=== PATIENT | female | born 1980 | race Caucasian/White ===

== ENCOUNTER → 2017-04-14 | Outpatient (CLI) | payer BC, OTHER ==
[~2017-04-14] MED LIST: DCS100C PO; FLX20C; HYDR-3454 PO; ONDN4T PO; PANT40TA2 PO; TRM50T
--- NOTE | 2017-04-14 11:28 | Diagnostic Imaging Report ---
EXAMINATION: Bilateral diagnostic mammogram with tomography. CAD is utilized. The current study was also evaluated with a Computer Aided Detection (CAD) system. INDICATION: Medial right breast pain. COMPARISON: 03/11/14. FINDINGS: The breasts are composed of heterogeneously dense parenchyma in the central aspect of each breast. Benign-appearing calcification seen. Overall the breast density appears to be slightly decreased compared to 2014 exam. No significant change is seen otherwise. IMPRESSION: No mammographic evidence of malignancy. Ultrasound evaluation pending. BI-RADS 0. ACR BI-RADS Category 0: Incomplete. (Needs additional imaging evaluation). Result letter will be mailed to the patient. Note: At least 10% of breast cancer is not imaged by mammography. Dictated by: Dictated on workstation # [id number]
--- NOTE | 2017-04-14 12:14 | Diagnostic Imaging Report ---
Right breast ultrasound. INDICATION: Right breast pain medial aspect. FINDINGS: The area of pain and surrounding region in the right breast is scanned with no underlying abnormality seen. IMPRESSION: Negative study. Clinical followup is recommended. ACR BI-RADS Category 1: Negative. Dictated by: Dictated on workstation # [id number]
== END ==
LOC: RAD 10:47
PROVIDERS: ATTEND Nurse Practitioner Family
DX: N64.4 Mastodynia (principal)
CPT/HCPCS: 77066

== ENCOUNTER → 2018-04-17 | Outpatient (CLI) | payer OTHER ==
[2018-04-17 12:18] LABS: BASOPHILS % (AUTO) 0 % (0-10); EOSINOPHILS # (AUTO) 0.2 10^3/uL (0.0-0.3); EOSINOPHILS % (AUTO) 3 % (0-10); HEMATOCRIT 41 % (35-52); HEMOGLOBIN 14.4 G/DL (11.5-16.0); LYMPHOCYTES # (AUTO) 2.6 X 10^3 (1.0-4.0); LYMPHOCYTES % (AUTO) 32 % (12-44); MEAN CORPUSCULAR HEMOGLOBIN 31 PG (25-34); MEAN CORPUSCULAR HGB CONC 35 G/DL (32-36); MEAN CORPUSCULAR VOLUME 90 FL (80-99); MEAN PLATELET VOLUME 9.7 FL (7.4-10.4); MONOCYTES # (AUTO) 0.5 X 10^3 (0.0-1.0); MONOCYTES % (AUTO) 6 % (0-12); NEUTROPHILS # (AUTO) 4.7 X 10^3 (1.8-7.8); NEUTROPHILS % (AUTO) 58 % (42-75); PLATELET COUNT 268 10^3/uL (130-400); RED BLOOD COUNT 4.58 10^6/uL (4.35-5.85); RED CELL DISTRIBUTION WIDTH 12.6 % (10.0-14.5); WHITE BLOOD COUNT 8.1 10^3/uL (4.3-11.0)
[2018-04-17 12:38] LABS: ALANINE AMINOTRANSFERASE 28 U/L (0-55); ALBUMIN 4.5 GM/DL (3.2-4.5); ALKALINE PHOSPHATASE 52 U/L (40-136); BILIRUBIN,TOTAL 0.6 MG/DL (0.1-1.0); BUN/CREATININE RATIO 11; CALCIUM 9.6 MG/DL (8.5-10.1); CARBON DIOXIDE 25 MMOL/L (21-32); CHLORIDE 105 MMOL/L (98-107); CHOLESTEROL 200 MG/DL (< 200); CREATININE SERUM 0.95 MG/DL (0.60-1.30); GFR ESTIMATED > 60; GLUCOSE 92 MG/DL (70-105); HDL CHOLESTEROL 43 MG/DL (40-60); SODIUM 138 MMOL/L (135-145); TOTAL PROTEIN 7.4 GM/DL (6.4-8.2); TRIGLYCERIDES 152 MG/DL (<150); VLDL CHOLESTEROL 30 MG/DL (5-40)
== END ==
LOC: LAB 11:56
PROVIDERS: ATTEND Nurse Practitioner Family
DX: R53.83 Other fatigue (principal); R23.2 Flushing; N64.4 Mastodynia
CPT/HCPCS: 36415; 80053; 80061; 82672; 84144; 84443; 85025

== ENCOUNTER 2019-01-07 14:08 | Observation (INO) | payer OTHER ==
[~2019-01-07] VITALS: Ht 172.7 cm; Wt 97.7 kg
--- NOTE | 2019-01-07 14:10 | NUR ---
TRINITY GILBERT admitted to room 411-1, with an admitting diagnosis of BRONCHITIS, on 01/07/[address] ROS NEWTON via AMBULATORY, accompanied by SELF. TRINITY GILBERT introduced to surroundings, call light, bed controls, phone, TV, temperature control, lights, meal times, smoking policy, visitor policy, side rail policy, bathrooms and showers. Patient Rights given to patient in the handbook. TRINITY GILBERT verbalizes understanding that [facility] is not responsible for the loss or damage to any personal effects or valuables that are kept in the patients posession during their hospitalization. The following Patient Care Plans were discussed with the PATIENT: Discharge Planning, KNOWLEDGE, AND INEFFECTIVE BREATHING. TRINITY GILBERT verbalizes understanding of Interdisciplinary Patient Education.
--- OUTSIDE RECORDS SUMMARY | 2019-01-07 14:18 | XMS REPORT | Continuity of Care Document ---
Author Organization Unknown Address Unknown Allergies Active Description Code Type Severity Reaction Onset Reported/Identified Relationship to Patient Clinical Status Yes amoxicillin [id number] Drug Allergy Unknown N/A 05/08/2008 Yes butorphanol [id number] Drug Allergy Unknown N/A 05/08/2008 Yes clindamycin [id number] Drug Allergy Unknown N/A 05/08/2008 Yes codeine [id number] Drug Allergy Unknown N/A 05/08/2008 Yes meperidine [id number] Drug Allergy Unknown N/A 05/08/2008 Yes morphine [id number] Drug Allergy Unknown PT TAKES NUBAIN 05/08/2008 Yes oxycodone [id number] Drug Allergy Unknown N/A 05/08/2008 Yes Penicillins [id number] Drug Allergy Unknown N/A 05/08/2008 Yes potassium clavulanate [id number] Drug Allergy Unknown N/A 05/08/2008 Yes propoxyphene [id number] Drug Allergy Unknown N/A 05/08/2008 Yes acetaminophen [id number] Drug Allergy Unknown PT TAKES TYLENO 05/09/2008 Yes moxifloxacin [id number] Drug Allergy Unknown ANAPHYLAXIS 09/09/2014 Medications There is no data. Problems Date Dx Coded Attending Type Code Diagnosis Diagnosed By 09/05/2014 IRINA FRANCIS MD Ot 611.72 09/05/2014 IRINA FRANCIS MD Ot V72.62 09/05/2014 YANI KHANNA APRN Ot V76.12 09/05/2014 IMTIAZ KHANNA Ot 574.20 09/11/2014 Ot 574.20 CHOLELITHIASIS NOS 09/19/2014 IMTIAZ KHANNA Ot 574.20 09/19/2014 HIREN CURTIS DO Ot 574.20 09/19/2014 HIREN CURTIS DO Ot V72.63 09/19/2014 HIREN CURTIS DO Ot V74.8 10/17/2014 Ot 424.0 10/17/2014 Ot 780.79 10/17/2014 Ot 786.50 12/09/2014 HIREN CURTIS DO D Ot 574.20 12/09/2014 HIREN CURTIS DO D Ot V72.63 12/09/2014 HIREN CURTIS DO D Ot V74.8 11/17/2015 CURTIS HIREN CORTES Ot 574.20 CHOLELITHIASIS NOS 11/17/2015 CURTIS HIREN CORTES Ot V72.63 PRE-PROCEDURAL LABORATORY EXAMINATION 11/17/2015 CURTIS HIREN CORTES Ot V74.8 SCREEN-BACTERIAL DIS NEC 12/14/2016 CURTIS HIREN CORTES Ot 574.20 CHOLELITHIASIS NOS 12/14/2016 HOBOKEN HIREN CORTES Ot V72.63 PRE-PROCEDURAL LABORATORY EXAMINATION 12/14/2016 HOBOKEN HIREN CORTES Ot V74.8 SCREEN-BACTERIAL DIS NEC 04/14/2017 IRINA FRANCIS MD Ot 611.72 LUMP OR MASS IN BREAST 04/14/2017 IRINA FRANCIS MD Ot V72.62 LAB EXAM ORDERED PART OF A ROUTINE GE 04/14/2017 YANI KHANNA RETINAL ANGIOGRAPHER Ot V76.12 OTH SCREEN MAMMO-MALIGN NEOPLASM OF CARLOS 04/14/2017 IMTIAZ KHANNA Ot 574.20 CHOLELITHIASIS NOS 04/14/2017 IRINA FRANCIS MD Ot 611.72 LUMP OR MASS IN BREAST 04/14/2017 IRINA FRANCIS MD Ot V72.62 LAB EXAM ORDERED PART OF A ROUTINE GE 04/14/2017 YANI KHANNA RETINAL ANGIOGRAPHER Ot V76.12 OTH SCREEN MAMMO-MALIGN NEOPLASM OF CARLOS 04/14/2017 IMTIAZ KHANNA ENROBER TENDER Ot 574.20 CHOLELITHIASIS NOS 04/17/2017 FAVIOLA DHILLON RETINAL ANGIOGRAPHER Ot N64.4 MASTODYNIA 05/09/2017 FAVIOLA DHILLON RETINAL ANGIOGRAPHER Ot N64.4 MASTODYNIA 04/19/2018 FAVIOLA DHILLON RETINAL ANGIOGRAPHER Ot N64.4 MASTODYNIA 04/19/2018 FAVIOLA DHILLON RETINAL ANGIOGRAPHER Ot R23.2 FLUSHING 04/19/2018 ALEJO, FAVIOLA M RETINAL ANGIOGRAPHER Ot R53.83 OTHER FATIGUE 04/23/2018 FAVIOLA DHILLON RETINAL ANGIOGRAPHER Ot N64.4 MASTODYNIA 04/23/2018 FAVIOLA DHILLON RETINAL ANGIOGRAPHER Ot R23.2 FLUSHING 04/23/2018 FAVIOLA DHILLON RETINAL ANGIOGRAPHER Ot R53.83 OTHER FATIGUE 04/30/2018 FAVIOLA DHILLON RETINAL ANGIOGRAPHER Ot N64.4 MASTODYNIA 04/30/2018 FAVIOLA DHILLON RETINAL ANGIOGRAPHER Ot R23.2 FLUSHING 04/30/2018 FAVIOLA DHILLON RETINAL ANGIOGRAPHER Ot R53.83 OTHER FATIGUE 05/01/2018 FAVIOLA DHILLON RETINAL ANGIOGRAPHER Ot N64.4 MASTODYNIA 05/01/2018 FAVIOLA DHILLON RETINAL ANGIOGRAPHER Ot R23.2 FLUSHING 05/01/2018 FAVIOLA DHILLON RETINAL ANGIOGRAPHER Ot R53.83 OTHER FATIGUE 05/01/2018 FAVIOLA DHILLON RETINAL ANGIOGRAPHER Ot N64.4 MASTODYNIA 05/01/2018 FAVIOLA DHILLON RETINAL ANGIOGRAPHER Ot R23.2 FLUSHING 05/01/2018 FAVIOLA DHILLON RETINAL ANGIOGRAPHER Ot R53.83 OTHER FATIGUE 05/22/2018 FAVIOLA DHILLON RETINAL ANGIOGRAPHER Ot N64.4 MASTODYNIA 05/22/2018 FAVIOLA DHILLON RETINAL ANGIOGRAPHER Ot R23.2 FLUSHING 05/22/2018 FAVIOLA DHILLON RETINAL ANGIOGRAPHER Ot R53.83 OTHER FATIGUE Procedures There is no data. Results Test Result Range Complete blood count (CBC) with automated white blood cell (WBC) differential - 04/17/18 12:13 Blood leukocytes automated count (number/volume) 8.1 10*3/uL 4.3-11.0 Blood erythrocytes automated count (number/volume) 4.58 10*6/uL 4.35-5.85 Venous blood hemoglobin measurement (mass/volume) 14.4 g/dL 11.5-16.0 Blood hematocrit (volume fraction) 41 % 35-52 Automated erythrocyte mean corpuscular volume 90 [foz_us] 80-99 Automated erythrocyte mean corpuscular hemoglobin (mass per erythrocyte) 31 pg 25-34 Automated erythrocyte mean corpuscular hemoglobin concentration measurement (mass/volume) 35 g/dL 32-36 Automated erythrocyte distribution width ratio 12.6 % 10.0- 14.5 Automated blood platelet count (count/volume) 268 10*3/uL 130-400 Automated blood platelet mean volume measurement 9.7 [foz_us] 7.4-10.4 Automated blood neutrophils/100 leukocytes 58 % 42-75 Automated blood lymphocytes/100 leukocytes 32 % 12-44 Blood monocytes/100 leukocytes 6 % 0-12 Automated blood eosinophils/100 leukocytes 3 % 0-10 Automated blood basophils/100 leukocytes 0 % 0-10 Blood neutrophils automated count (number/volume) 4.7 10*3 1.8-7.8 Blood lymphocytes automated count (number/volume) 2.6 10*3 1.0-4.0 Blood monocytes automated count (number/volume) 0.5 10*3 0.0- 1.0 Automated eosinophil count 0.2 10*3/uL 0.0-0.3 Automated blood basophil count (count/volume) 0.0 10*3/uL 0.0-0.1 Comprehensive metabolic panel - 04/17/18 12:13 Serum or plasma sodium measurement (moles/volume) 138 mmol/L 135-145 Serum or plasma potassium measurement (moles/volume) 4.0 mmol/L 3.6-5.0 Serum or plasma chloride measurement (moles/volume) 105 mmol/L 98-107 Carbon dioxide 25 mmol/L 21-32 Serum or plasma anion gap determination (moles/volume) 8 mmol/L 5-14 Serum or plasma urea nitrogen measurement (mass/volume) 10 mg/dL 7-18 Serum or plasma creatinine measurement (mass/volume) 0.95 mg/dL 0.60-1.30 Serum or plasma urea nitrogen/creatinine mass ratio 11 NRG Serum or plasma creatinine measurement with calculation of estimated glomerular filtration rate > NRG Serum or plasma glucose measurement (mass/volume) 92 mg/dL 70-105 Serum or plasma calcium measurement (mass/volume) 9.6 mg/dL 8.5-10.1 Serum or plasma total bilirubin measurement (mass/volume) 0.6 mg/dL 0.1-1.0 Serum or plasma alkaline phosphatase measurement (enzymatic activity/volume) 52 U/L 40-136 Serum or plasma aspartate aminotransferase measurement (enzymatic activity/volume) 21 U/L 5-34 Serum or plasma alanine aminotransferase measurement (enzymatic activity/volume) 28 U/L 0-55 Serum or plasma protein measurement (mass/volume) 7.4 g/dL 6.4-8.2 Serum or plasma albumin measurement (mass/volume) 4.5 g/dL 3.2-4.5 CALCIUM CORRECTED 9.2 mg/dL 8.5-10.1 Lipid 1996 panel - 04/17/18 12:13 Serum or plasma triglyceride measurement (mass/volume) 152 mg/dL <150 Serum or plasma cholesterol measurement (mass/volume) 200 mg/dL < 200 Serum or plasma cholesterol in HDL measurement (mass/volume) 43 mg/dL 40-60 Cholesterol in LDL [mass/volume] in serum or plasma by direct assay 145 mg/dL 1-129 Serum or plasma cholesterol in VLDL measurement (mass/volume) 30 mg/dL 5-40 THYROID STIMULATING HORMONE - 04/17/18 12:13 THYROID STIMULATING HORMONE 1.48 u[iU]/mL 0.35-4.94 Serum or plasma progesterone measurement (mass/volume) - 04/17/18 12:13 Serum or plasma progesterone measurement (mass/volume) 2.58 % NRG Serum or plasma estradiol (E2) measurement (mass/volume) - 04/17/18 12:13 Serum or plasma estrogen measurement (mass/volume) 352.0 pg/mL NRG Encounters ACCT No. Visit Date/Time Discharge Status Pt. Type Provider Facility Loc./Unit Complaint [id number] 04/17/2018 11:56:00 04/17/2018 23:59:59 CLS Outpatient FAVIOLA DHILLON APRN [facility] LAB FATIGUE,CARDIOVASCULAR SCREENING,BREAST PAIN [id number] 04/14/2017 10:47:00 04/14/2017 23:59:59 CLS Outpatient FAVIOLA DHILLON APRN [facility] RAD RT BREAST PAIN [id number] 09/09/2014 06:30:00 09/09/2014 23:59:59 CLS Outpatient HIREN CURTIS DO [facility] PREOP GALLSTONES [id number] 09/04/2014 11:56:00 09/04/2014 23:59:59 CLS Outpatient IMTIAZ KHANNA [facility] RAD ABD PAIN, DIARRHEA,NAUSEA [id number] 04/15/2014 06:33:00 04/15/2014 23:59:59 CLS Outpatient IRINA FRANCIS MD [facility] LAB ROUTINE EXAM [id number] 03/11/2014 10:14:00 03/11/2014 23:59:59 CLS Outpatient YANI KHANNA APRN [facility] RAD SCREENING [id number] 09/11/2014 08:55:00 Document Registration [id number] 10/21/2009 13:24:00 Document Registration
[2019-01-07] MEDS ORDERED: NS IV 1000 ML 1,000 ML IV SCH (14:20)
[2019-01-07] MEDS ORDERED: methylPREDNISolone 125 MG (Solu-MEDROL) VIAL IVP NR (14:30)
[2019-01-07 14:36] VITALS: BP 145/75
[2019-01-07 14:45] LABS: BASOPHILS % (AUTO) 0 % (0-10); EOSINOPHILS # (AUTO) 0.2 10^3/uL (0.0-0.3); EOSINOPHILS % (AUTO) 2 % (0-10); HEMATOCRIT 43 % (35-52); HEMOGLOBIN 14.5 G/DL (11.5-16.0); LYMPHOCYTES # (AUTO) 2.7 X 10^3 (1.0-4.0); LYMPHOCYTES % (AUTO) 32 % (12-44); MEAN CORPUSCULAR HEMOGLOBIN 31 PG (25-34); MEAN CORPUSCULAR HGB CONC 34 G/DL (32-36); MEAN CORPUSCULAR VOLUME 90 FL (80-99); MEAN PLATELET VOLUME 9.6 FL (7.4-10.4); MONOCYTES # (AUTO) 0.6 X 10^3 (0.0-1.0); MONOCYTES % (AUTO) 7 % (0-12); NEUTROPHILS % (AUTO) 59 % (42-75); PLATELET COUNT 291 10^3/uL (130-400); RED CELL DISTRIBUTION WIDTH 12.8 % (10.0-14.5); WHITE BLOOD COUNT 8.5 10^3/uL (4.3-11.0)
[2019-01-07] MEDS ORDERED: AZITHROMYCIN INJECTION 500 MG in NS (IVPB) 250 ML IV NR (14:45)
[2019-01-07] MEDS ORDERED: PROMETHAZINE 6.25 MG/5 ML SYRUP (PHENERGAN) 5 ML UDC PO NR (14:45)
--- NOTE | 2019-01-07 14:45 | NUR ---
Pastoral care visit.
[2019-01-07 15:09] LABS: ALANINE AMINOTRANSFERASE 62 U/L (0-55); ALBUMIN 4.3 GM/DL (3.2-4.5); ALKALINE PHOSPHATASE 53 U/L (40-136); BILIRUBIN,TOTAL 0.4 MG/DL (0.1-1.0); BUN/CREATININE RATIO 9; CALCIUM 9.5 MG/DL (8.5-10.1); CARBON DIOXIDE 26 MMOL/L (21-32); CHLORIDE 103 MMOL/L (98-107); GFR ESTIMATED > 60; GLUCOSE 91 MG/DL (70-105); POTASSIUM 3.5 MMOL/L (3.6-5.0); SODIUM 140 MMOL/L (135-145); TOTAL PROTEIN 7.1 GM/DL (6.4-8.2)
[2019-01-07] MEDS: cefTRIAXone FOR IV USE 1,000 MG in WATER (STERILE) FOR INJECTION 10 ML IV SCH (15:21)
[2019-01-07 15:49] VITALS: BP 135/84
[2019-01-07 15:51] VITALS: BP 135/84
[2019-01-07 16:06] VITALS: BP 135/84
[2019-01-07] MEDS: RT-ALBUTEROL SULF 2.5 MG/3 ML PRE-MIX VIAL INH SCH ×3 (16:06→22:49)
--- NOTE | 2019-01-07 16:15 | Diagnostic Imaging Report ---
INDICATION: Bronchitis and fever. TIME OF EXAM: 2:44 PM. COMPARISON: No prior studies are available for comparison. FINDINGS: The heart size is normal. The pulmonary vascularity is unremarkable. The lungs are clear. No infiltrate, effusion, or pneumothorax is detected. IMPRESSION: No acute cardiopulmonary process is detected. Dictated by: Dictated on workstation # [id number]
--- NOTE | 2019-01-07 16:58 | History & Physicial ---
History of Present Illness History of Present Illness Reason for visit/HPI PT PRESENTED TO THE OFFICE TODAY WITH COMPLAINT OF A COUGH WHICH HAS BEEN ONGOING FOR AT LEAST 10 DAYS. SHE REPORTS THAT SHE THOUGHT SHE WAS IMPROVING SLIGHTLY THEN SHE STARTED TO HAVE WORSENING COUGH, AND A RETURN OF HER FEVER. SHE STATES THAT SHE HAS BEEN UNABLE TO CALM DOWN HER COUGH AND HAS BEEN ON CEFDINIR AND AZITHROMYCIN (STARTED ON MONDAY EVENING) AND SHE HAS BEEN THROUGH A ROUND OF TESSALON PERLES WELL SEVERAL BOTTLES OF ROBITUSSIN. SHE STATES THAT SHE JUST FEELS MISERABLE. Date of Admission Jan 07, 2019 at 14:08 Date Seen by a Provider: Jan 07, 2019 Time Seen by a Provider: 13:30 Attending Physician Irina Russell MD Admitting Physician Irina Russell MD Consult Allergies and Home Medications Allergies Coded Allergies: Penicillins (Verified Allergy, Unknown, 05/08/08) acetaminophen (Verified Allergy, Unknown, PT TAKES TYLENOL AT HOME, 05/09/08) amoxicillin (Verified Allergy, Unknown, 05/08/08) butorphanol (Verified Allergy, Unknown, 05/08/08) clindamycin (Verified Allergy, Unknown, 05/08/08) codeine (Verified Allergy, Unknown, 05/08/08) meperidine (Verified Allergy, Unknown, 05/08/08) morphine (Verified Allergy, Unknown, PT TAKES NUBAIN AT HOME, 05/08/08) moxifloxacin (Unverified Allergy, Unknown, ANAPHYLAXIS, 09/09/14) oxycodone (Verified Allergy, Unknown, 05/08/08) potassium clavulanate (Verified Allergy, Unknown, 05/08/08) propoxyphene (Verified Allergy, Unknown, 05/08/08) Home Medications Docusate Sodium 100 Mg Cap, 100 MG PO BID Prescribed by: HIREN CURTIS on 09/11/14 1323 Hydrocodone Bit/Acetaminophen 1 Each Tablet, 1 EACH PO Q4H PRN for PAIN Prescribed by: HIREN CURTIS on 09/11/14 1323 Ondansetron Hcl 4 Mg Tab, 4 MG PO Q6H PRN for NAUSEA/VOMITING, (Reported) PRN N/V Pantoprazole Sod 40 Mg Tab, 40 MG PO DAILY, (Reported) Patient Home Medication List Home Medication List Reviewed: Yes Past Tsyqqsg-Mcrcxa-Skryji Hx Patient Social History Marrital Status: Number of Children: 1 Number of living children: 1 Living Status: LIVES WITH SPOUSE AND SON IN [place] 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[employer]) Alcohol Use: Occasionally Uses Alcohol Beverage of Choice: Beer Recreational Drug Use: No Smoking Status: Never a Smoker 2nd Hand Smoke Exposure: No Physical Abuse Screen: Yes Sexual Abuse: No Recent Foreign Travel: No Contact w/other who traveled: No Recent Hopitalizations: No (2003 for of son) Recent Infectious Disease Expo: No Immunizations Up To Date Date of Influenza Vaccine: Apr 23, 2014 Seasonal Allergies Seasonal Allergies: Yes Surgeries Yes (knee surgery x3, tonsilectomy, oral surgery to pull 12 teeth as a child) Respiratory Yes Currently Using CPAP: No Currently Using BIPAP: No Cardiovascular Yes Neurological No Reproductive System Hx Reproductive Disorders: No Sexually Transmitted Disease: No Genitourinary No Gastrointestinal No Gastroesophageal Reflux, Gall Bladder Disease Musculoskeletal No Endocrine History of Endocrine Disorders: No Are Your Blood Sugars Over 250: No HEENT History of HEENT Disorders: No Loss of Vision: Denies Hearing Impairment: Denies Cancer No Psychosocial History of Psychiatric Problem: Yes Behavioral Health Disorders: Depression Integumentary History of Skin or Integumenta: No Blood Transfusions History of Blood Disorders: No Adverse Reaction to a Blood Tr: No Reviewed Nursing Assessment Reviewed/Agree w Nursing PMH: Yes Family Medical History Significant Family History: Heart Disease, Cancer, Hypertension Review of Systems Constitutional: No chills, No diaphoresis; fever, malaise, weakness EENTM: No ear pain, No hoarseness, No throat pain Respiratory: cough, dyspnea on exertion, short of breath Cardiovascular: No chest pain, No palpitations Gastrointestinal: No abdominal pain, No constipation, No diarrhea, No loss of appetite Genitourinary: no symptoms reported Musculoskeletal: no symptoms reported; No back pain Skin: no symptoms reported Psychiatric/Neurological: No Symptoms Reported All Other Systems Reviewed Negative Unless Noted: Yes Physical Exam Vital Signs Vital Signs - First Documented 01/07/19 14:36 Temp 99.5 Pulse 87 Resp 20 B/P (MAP) 145/75 (98) Pulse Ox 96 O2 Delivery Room Air Capillary Refill : Height, Weight, BMI Height: 5'8.00" Weight: 215lbs. 8.0oz. 97.000049rc; 32.7 BMI Method: General Appearance: WD/WN, Mild Distress (DUE TO COUGH) HEENT: PERRL/EOMI, TMs Normal, Pharyngeal Erythema Neck: Full Range of Motion, Non Tender, Supple Respiratory: Chest Non Tender, No Accessory Muscle Use, Decreased Breath Sounds; No Rhonci, No Stridor; Wheezing Cardiovascular: Regular Rate, Rhythm, No Edema, Normal Peripheral Pulses Gastrointestinal: Normal Bowel Sounds, Non Tender, Soft Rectal: Deferred Extremity: Normal Capillary Refill, Normal Inspection, Non Tender, No Calf Tenderness, No Pedal Edema Neurologic/Psychiatric: Alert, Oriented x3, No Motor/Sensory Deficits, Normal Mood/Affect, it engineer II-XII Norm as Tested Skin: Normal Color, Warm/Dry Lymphatic: Other (ANTERIOR CERVICAL LYMPHADENOPATHY) Assessment/Plan Assessment and Plan BRONCHITIS FEVER COUGH SHORTNESS OF BREATH BRONCHITIS WITH FEVER AND COUGH AND SHORTNESS OF BREATH - CHEST XRAY - NEGATIVE, LABS SHOW NORMAL WHITE COUNT WITH ELEVATED LIVER ENZYMES - MAY BE MEDICATION RELATED, WILL ORDER A REPEAT OF HER LABS IN THE MORNING. START ON SOLUMEDROL, ROCEPHIN AND AZITHROMYCIN. BREATHING TREATMENTS SCHEDULED TESSALON PERLES AND PHENERGAN FOR COUGH SUPPRESSION. Admission Diagnosis BRONCHITIS FEVER COUGH SHORTNESS OF BREATH Admission Status: Observation Clinical Quality Measures DVT/VTE Risk/Contraindication: RFS Level Per Nursing on Admit: 0=No Risk/No VTE PPX IRINA RUSSELL MD Jan 07, 2019 16:57
[2019-01-07] MEDS: methylPREDNISolone 40 MG/ML (Solu-MEDROL) VIAL IV SCH (18:39)
[2019-01-07] MEDS: PROMETHAZINE 6.25 MG/5 ML SYRUP (PHENERGAN) 5 ML UDC PO PRN ×2 (19:26→23:52)
[2019-01-07 19:41] VITALS: BP 136/88
--- NOTE | 2019-01-07 21:07 | NUR ---
THIS RN CALLED DR. FRANCIS IN REGARDS TO THE PT REQUESTING THE IV FLUIDS BE STOPPED AND THE IV BE SALINE LOCKED DUE TO FREQUENT URINATION AND SWELLING OF THE LEFT ARM. ORDERS RECEIVED TO STOP NS @125 ML/HR AND SALINE LOCK PATIENT. ORDERS READ BACK AND VERIFIED.
[2019-01-07] MEDS: BENZONATATE 100 MG (TESSALON) CAPSULE PO SCH (21:11)
[2019-01-08] MEDS: methylPREDNISolone 40 MG/ML (Solu-MEDROL) VIAL IV SCH ×4 (00:02→18:29)
[2019-01-08 00:09] VITALS: BP 148/79
[2019-01-08] MEDS: RT-ALBUTEROL SULF 2.5 MG/3 ML PRE-MIX VIAL INH SCH ×4 (04:04→14:50)
[2019-01-08 04:44] VITALS: BP 121/73
[2019-01-08 06:05] LABS: HEMOGLOBIN 13.3 G/DL (11.5-16.0); MEAN PLATELET VOLUME 9.9 FL (7.4-10.4); RED CELL DISTRIBUTION WIDTH 13.1 % (10.0-14.5); WHITE BLOOD COUNT 15.5 10^3/uL (4.3-11.0)
[2019-01-08] MEDS: PROMETHAZINE 6.25 MG/5 ML SYRUP (PHENERGAN) 5 ML UDC PO PRN ×3 (06:06→15:04)
[2019-01-08 06:18] LABS: ALANINE AMINOTRANSFERASE 58 U/L (0-55); ALBUMIN 4.1 GM/DL (3.2-4.5); ALKALINE PHOSPHATASE 53 U/L (40-136); BILIRUBIN,TOTAL 0.3 MG/DL (0.1-1.0); BUN/CREATININE RATIO 18; CALCIUM 9.5 MG/DL (8.5-10.1); CARBON DIOXIDE 19 MMOL/L (21-32); CHLORIDE 105 MMOL/L (98-107); CREATININE SERUM 0.84 MG/DL (0.60-1.30); GFR ESTIMATED > 60; GLUCOSE 208 MG/DL (70-105); POTASSIUM 4.4 MMOL/L (3.6-5.0); SODIUM 136 MMOL/L (135-145)
[2019-01-08 08:00] VITALS: BP 136/74
[2019-01-08] MEDS ORDERED: AZIT250T12 PO (08:29)
[2019-01-08] MEDS ORDERED: AZITHROMYCIN INJECTION 250 MG in NS (IVPB) 250 ML IV SCH (09:00)
[2019-01-08] MEDS: BENZONATATE 100 MG (TESSALON) CAPSULE PO SCH ×2 (09:14→13:49)
[2019-01-08] MEDS ORDERED: CETI10TA20 PO (10:51)
[2019-01-08] MEDS ORDERED: CEFD300C3 PO (10:51)
[2019-01-08] MEDS ORDERED: MELA3TAB PO (10:51)
[2019-01-08] MEDS ORDERED: ALPR0.254 PO (10:51)
--- NOTE | 2019-01-08 10:52 | NUR ---
SPOKE WITH THE PATIENT ABOUT HER MEDICATIONS. SHE LISTED HER MEDS TO ME AND I COMPARED WITH THE EXT MED HX. SHE STATES SHE FINISHED THE PREDNISONE AND IS OUT OF THE BENZONATATE SHE WAS PRESCRIBED. SHE IS STILL FINISHING UP HER ZPAK AND CEFDINIR SCRIPTS. SHE TAKES MELATONIN 3MG AND ZYRTEC 10MG HS OTC. SHE STATES SHE HAS THE ALPRAZOLAM BUT DOES NOT TAKE IT OFTEN, SHE WAS PRESCRIBED THIS WHEN SHE STOPPED HER FLUOXETINE BUT HAS NOT HAD TO TAKE THE XANAX RECENTLY.
[2019-01-08 12:00] VITALS: BP 130/84
[2019-01-08] MEDS: cefTRIAXone FOR IV USE 1,000 MG in WATER (STERILE) FOR INJECTION 10 ML IV SCH (14:54)
[2019-01-08 16:34] VITALS: BP 175/91
--- NOTE | 2019-01-08 16:37 | NUR ---
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 Her father, with whom she shared a strong and loving relationship, a year ago following cancer diagnosis. This unified communications architect officiated her father's . Offered active listening and compassionate presence. She is [employer] and holds strong personal values of loyalty, kindness, and honesty.
--- NOTE | 2019-01-08 18:30 | NUR ---
DR FRANCIS HERE, ORDERS GIVEN TO DISCHARGE.
--- NOTE | 2019-01-08 18:44 | Discharge Inst-Complex ---
PDI Med Rec & Follow Up Appt. Continued Medications: Alprazolam (Alprazolam) 0.25 Mg Tablet 0.125-0.25 MG PO DAILY PRN for ANXIETY, TAB Azithromycin (Azithromycin) 250 Mg Tablet PO UD for 5 Days, TAB 5 DAY SUPPLY FILLED 01-05-19 Cefdinir (Cefdinir) 300 Mg Capsule 300 MG PO BID for 10 Days, CAP 10 DAY SUPPLY FILLED 01-01-19 Cetirizine HCl (Zyrtec) 10 Mg Tablet 10 MG PO DAILY, TAB Melatonin (Melatonin) 3 Mg Tablet 3 MG PO HS, TAB Prescription: Transmitted to Pharmacy Activity, Diet and PDI Resume Normal Activity: Yes Discharge Diet: Regular Diet May Return to Work/School/Day: May Return to Work (on 01/14/19) Symptoms to Reoprt to DrKam: Appetite Changes, Fever Over 101 Degrees F, Pain/Pressure in Chest, Shortness of Breath For Problems or Questions: Contact Your Physician, Go to Emergency Room IRINA FRANCIS MD Jan 08, 2019 18:43
--- NOTE | 2019-01-08 18:55 | NUR ---
DISCHARGE INSTRUCTIONS GIVEN, VERBALIZED UNDERSTANDING, SALINE LOCK DC, SITE WITHOUT REDNESS OR SWELLING.
[2019-01-08 19:00] VITALS: BP 175/91
--- NOTE | 2019-01-08 19:06 | NUR ---
TRINITY GILBERT demonstrates understanding of discharge instructions and accurately returns instructions upon questioning. Copy of Post-Discharge Instructions and Medication Discharge Instructions given to PATIENT. TRINITY GILBERT is able to manage continuing needs after discharge. Patients belongings returned to PATIENT. Skin dry and intact; no breakdown noted. Patient discharged from [facility] on 01/08/19 at 1900. TRINITY GILBERT left floor via AMBULATORY, accompanied by FAMILY.
== END 2019-01-08 19:08 | disposition home or self-care (01) ==
LOC: 4TH 14:08
PROVIDERS: ADMIT Family Medicine; ATTEND Family Medicine
DX: J20.9 Acute bronchitis, unspecified (principal); K21.9 Gastro-esophageal reflux disease without esophagitis; Z79.899 Other long term (current) drug therapy
CPT/HCPCS: 36415; 71046; 80053; 85025; 85027; 90471; 94640; 94760; 99211; G0378

== ENCOUNTER → 2019-06-26 | Outpatient (CLI) | payer OTHER ==
[~2019-06-26] MED LIST changes: +ALPR0.254 PO; +AZIT250T12 PO; +CEFD300C3 PO; +CETI10TA20 PO; +MELA3TAB PO
== END ==
LOC: LAB 12:18
PROVIDERS: ATTEND Nurse Practitioner Family
DX: J02.9 Acute pharyngitis, unspecified (principal)
CPT/HCPCS: 87430

== ENCOUNTER 2019-08-15 13:15 | Outpatient (RCR) | payer OTHER ==
[~2019-08-15 13:15] MED LIST changes: -CETI10TA20 PO; +CETI10TA21 PO; -MELA3TAB PO; +MELA3TAB39 PO
[2019-08-15 13:47] LABS: BASOPHILS % (AUTO) 0 % (0-10); EOSINOPHILS # (AUTO) 0.1 10^3/uL (0.0-0.3); EOSINOPHILS % (AUTO) 1 % (0-10); HEMATOCRIT 42 % (35-52); HEMOGLOBIN 14.2 G/DL (11.5-16.0); LYMPHOCYTES # (AUTO) 2.1 X 10^3 (1.0-4.0); LYMPHOCYTES % (AUTO) 28 % (12-44); MEAN CORPUSCULAR HEMOGLOBIN 31 PG (25-34); MEAN CORPUSCULAR HGB CONC 34 G/DL (32-36); MEAN CORPUSCULAR VOLUME 90 FL (80-99); MEAN PLATELET VOLUME 9.5 FL (7.4-10.4); MONOCYTES # (AUTO) 0.6 X 10^3 (0.0-1.0); MONOCYTES % (AUTO) 8 % (0-12); NEUTROPHILS # (AUTO) 4.6 X 10^3 (1.8-7.8); NEUTROPHILS % (AUTO) 63 % (42-75); PLATELET COUNT 266 10^3/uL (130-400); RED CELL DISTRIBUTION WIDTH 12.8 % (10.0-14.5); WHITE BLOOD COUNT 7.4 10^3/uL (4.3-11.0)
[2019-08-15 14:10] LABS: ALBUMIN 4.4 GM/DL (3.2-4.5); BILIRUBIN,TOTAL 0.4 MG/DL (0.1-1.0); CALCIUM 9.5 MG/DL (8.5-10.1); CREATININE SERUM 1.02 MG/DL (0.60-1.30); POTASSIUM 4.1 MMOL/L (3.6-5.0); TOTAL PROTEIN 7.3 GM/DL (6.4-8.2)
[2019-08-15 14:19] LABS: ERYTHROCYTE SEDIMENTATION RATE 7 MM/HR (0-20)
[2019-08-15 14:32] LABS: FREE T4 (FREE THYROXINE) 0.78 NG/DL (0.70-1.48)
== END 2019-11-13 | disposition home or self-care (01) ==
LOC: CARD 13:15
PROVIDERS: ATTEND Nurse Practitioner Family
DX: R53.83 Other fatigue (principal); R53.81 Other malaise; R42 Dizziness and giddiness; R00.1 Bradycardia, unspecified; R60.9 Edema, unspecified
CPT/HCPCS: 36415; 80053; 84439; 84443; 85025; 85652; 86141; 86663; 86664; 86665; 93225; 93226; 93306

== ENCOUNTER → 2020-02-05 | Outpatient (CLI) | payer OTHER | LOC: LAB 10:58 | PROVIDERS: ATTEND Family Medicine | DX: Z20.828 Contact with and (suspected) exposure to other viral communicable diseases (principal) | CPT/HCPCS: 87635 ==

== ENCOUNTER → 2020-02-11 | Outpatient (CLI) | payer OTHER | LOC: LABNPT 12:21 | PROVIDERS: ATTEND Family Medicine | DX: J06.9 Acute upper respiratory infection, unspecified (principal); R20.2 Paresthesia of skin; Z20.828 Contact with and (suspected) exposure to other viral communicable diseases | CPT/HCPCS: 87635 ==

== ENCOUNTER → 2020-06-16 | Outpatient (CLI) | payer OTHER ==
[~2020-06-16] MED LIST changes: +ALPR.25T PO; -ALPR0.254 PO; -CETI10TA21 PO; +CETI10TA49 PO
[2020-06-16 10:26] LABS: BASOPHILS % (AUTO) 1 % (0-10); EOSINOPHILS # (AUTO) 0.2 10^3/uL (0.0-0.3); EOSINOPHILS % (AUTO) 2 % (0-10); HEMATOCRIT 41 % (35-52); HEMOGLOBIN 13.7 g/dL (11.5-16.0); LYMPHOCYTES # (AUTO) 2.3 10^3/uL (1.0-4.0); LYMPHOCYTES % (AUTO) 30 % (12-44); MEAN CORPUSCULAR HEMOGLOBIN 31 pg (25-34); MEAN CORPUSCULAR HGB CONC 33 g/dL (32-36); MEAN CORPUSCULAR VOLUME 91 fL (80-99); MEAN PLATELET VOLUME 9.6 fL (9.0-12.2); MONOCYTES # (AUTO) 0.5 10^3/uL (0.0-1.0); MONOCYTES % (AUTO) 6 % (0-12); NEUTROPHILS # (AUTO) 4.7 10^3/uL (1.8-7.8); NEUTROPHILS % (AUTO) 61 % (42-75); PLATELET COUNT 314 10^3/uL (130-400); WHITE BLOOD COUNT 7.7 10^3/uL (4.3-11.0)
[2020-06-16 10:58] LABS: ALBUMIN 4.1 GM/DL (3.2-4.5); BILIRUBIN,TOTAL 0.5 MG/DL (0.1-1.0); CALCIUM 9.1 MG/DL (8.5-10.1); CREATININE SERUM 1.12 MG/DL (0.60-1.30); POTASSIUM 3.8 MMOL/L (3.6-5.0); TOTAL PROTEIN 6.8 GM/DL (6.4-8.2)
[2020-06-16 11:19] LABS: FREE T4 (FREE THYROXINE) 0.75 NG/DL (0.70-1.48)
== END ==
LOC: LAB 10:13
PROVIDERS: ATTEND Nurse Practitioner Family
DX: I10 Essential (primary) hypertension (principal); R00.2 Palpitations
CPT/HCPCS: 36415; 80053; 84439; 84443; 85025

== ENCOUNTER 2021-04-30 09:41 | Outpatient (RCR) | payer OTHER | END 2021-05-23 | disposition home or self-care (01) | DX: M72.2 Plantar fascial fibromatosis (principal) ==

== ENCOUNTER → 2021-11-16 | Outpatient (REF) ==
--- NOTE | 2021-11-16 15:21 | Diagnostic Imaging Report ---
Indication: Back pain and lifting injury. Time of Exam: 3:15 PM Frontal and lateral views of the lumbar spine were obtained. Curvature and alignment are normal. Vertebral body heights are well-maintained. No acute compression fracture is seen. Minimal degenerative spurring at L2-L3 and L3-S4 levels noted. IMPRESSION: No acute bony abnormality is detected. Dictated by: Dictated on workstation # [id number]
== END | disposition home or self-care (01) ==
LOC: OCC 15:05
PROVIDERS: ATTEND Family Medicine
DX: Z01.818 Encounter for other preprocedural examination (principal)
CPT/HCPCS: 72100

== ENCOUNTER → 2022-06-14 | Outpatient (CLI) | payer OTHER | LOC: CARD 08:24 | PROVIDERS: ATTEND Nurse Practitioner Family | DX: R00.2 Palpitations (principal) | CPT/HCPCS: 93225; 93226 ==

== ENCOUNTER → 2023-01-17 | Outpatient (CLI) | payer OTHER | LOC: LAB 18:23 | PROVIDERS: ATTEND Physician Assistant | DX: R07.9 Chest pain, unspecified (principal) | CPT/HCPCS: 36415; 84484 ==